=== PATIENT | male | born 1975 | race Caucasian/White ===

== ENCOUNTER 2016-10-12 19:04 | Emergency (ER) | payer BC ==
[2016-10-12 19:11] VITALS: TEMP 98.1
[2016-10-12] MEDS ORDERED: MAG HYDROX/AL HYDROX/SIMETH 30 ML, HYOSCYAMINE ELIXIR 10 ML, CIMETIDINE HCL 300 MG, LID... PO STA ×4 (19:38)
--- NOTE | 2016-10-12 19:42 | ED ---
Chest Pain HPI - General Chief Complaint: Chest Pain Stated Complaint: Chest Pain Time Seen by Provider: 10/12/16 19:24 Source: patient Mode of arrival: wheelchair Limitations: no limitations - History of Present Illness Initial Comments: Patient is a 41-year-old male with past history of tobacco abuse and family history heart disease presenting with left-sided chest pain. Onset was at 2 PM. Pain does not radiate. Patient states he was eating [employer] when the pain came on. Patient hasn't tried anything for the pain. Patient does not relate to rest or exertion. Patient denies diabetes, hypertension, hyperlipidemia. Patient denies cocaine use. Patient denies history of DVT/PE. Denies recent travel/trauma/surgery. Denies hemoptysis. Denies cancer. Denies fever, chills, shortness breath, nausea, vomiting, diarrhea, diaphoresis. - Related Data Home Medications Medication Instructions Recorded Confirmed No Known Home Medications [No 10/12/16 10/12/16 Known Home Medications] Allergies Allergy/AdvReac Type Severity Reaction Status Date / Time omeprazole [From Prilosec] Allergy Itching Verified 10/12/16 20:16 Penicillins Allergy Anaphylaxis Verified 10/12/16 20:16 Review of Systems ROS Statement: Those systems with pertinent positive or pertinent negative responses have been documented in the HPI. Constitutional: No fever and no chills. HENT: No congestion, no rhinorrhea and no sore throat. Eyes: No discharge and no redness. Respiratory: No cough and no shortness of breath. Cardiovascular: +chest pain and no palpitations. Gastrointestinal: No nausea, no vomiting, no abdominal pain and no diarrhea. Genitourinary: No dysuria and no hematuria. Musculoskeletal: No back pain and no arthralgias. Skin: No pallor and no rash. Neurological: No dizziness and No headaches. ROS Other: All systems not noted in ROS Statement are negative. EKG Findings - EKG Comments: EKG Findings:: Rate 74. NSR. No ST-T wave changes. WI internal normal . QRS interval normal. QTc duration normal. Past Medical History Past Medical History: No Reported History History of Any Multi-Drug Resistant Organisms: None Reported Past Surgical History: No Surgical Hx Reported Past Psychological History: No Psychological Hx Reported Smoking Status: Current every day smoker Past Alcohol Use History: None Reported Past Drug Use History: None Reported General Exam - General Exam Comments Initial Comments: Constitutional: Patient appears well-developed and well-nourished. No distress. Head: Normocephalic and atraumatic. Eyes: Conjunctivae and EOM are normal. Right eye exhibits no discharge. Left eye exhibits no discharge. No scleral icterus. Neck: Normal range of motion. Neck supple. Cardiovascular: Normal rate and regular rhythm. No murmur heard. Pulmonary/Chest: Effort normal and breath sounds normal. No respiratory distress. No wheezes. Abdominal: Soft. No distension. There is no tenderness. There is no rebound and no guarding. Musculoskeletal: Normal range of motion. No edema or tenderness. Neurological: Patient alert and oriented to person, place, and time. Skin: Skin is warm and dry. Not diaphoretic. Nursing notes and vitals reviewed. Limitations: no limitations Course Vital Signs 10/12/16 10/12/16 10/12/16 19:08 19:30 22:40 Temperature 98.1 F Pulse Rate 83 84 Pulse Rate [ 76 [employer] ] Respiratory 20 20 Rate Blood Pressure 140/75 130/68 O2 Sat by Pulse 98 98 Oximetry - Reevaluation(s) Reevaluation #1: 10/12/16 21:13 Patient given GI cocktail without significant resolution in pain. D-dimer, Robaxin, Toradol ordered. Updated patient on laboratory, EKG and x-ray results. Chest Pain [facility] Patient is a 41-year-old male presenting with left-sided chest pain after eating [employer]. No radiation. No diaphoresis. Patient has a heart score of 1. Pain did not change her GI cocktail. Pain did change with Toradol and Robaxin. Patient's EKG unremarkable as well as chest x-ray and troponins 2. CBC and CMP unremarkable. Lipase unremarkable. d--dimer negative as pain was mildly pleuritic. Educated patient that he can use Motrin 600 mg every 6 hours. Prior to discharge, patient was resting comfortably in bed. Course of stay improved. Denies pain. Discussed physical exam and diagnostic tests with patient. Questions answered and patient is agreeable to discharge with close follow up with Primary Care Physician. Instructed to return to Emergency Department if symptoms worsen. Disposition Clinical Impression: Chest pain Disposition: HOME SELF-CARE Condition: Good Instructions: Chest Pain (ED) Referrals: Mary Gallo MD [REFERRING] - 1-2 days Pasha Valles DO [Doctor of Osteopathic Medicine] - 1-2 days
[2016-10-12 20:16] LABS: Basophils % (A) 0 %; CH 30.4; CHCM 34.9; Eosinophils # (A) 0.2 k/uL (0-0.7); Eosinophils % (A) 3 %; HCT 46.9 % (39.0-53.0); HDW 2.83; HGB 15.8 gm/dL (13.0-17.5); Luc % (Auto) 1; Lymphocytes # (A) 2.1 k/uL (1.0-4.8); Lymphocytes % (A) 27 %; MCH 29.6 pg (25.0-35.0); MCHC 33.8 g/dL (31.0-37.0); MCV 87.6 fL (80.0-100.0); Mean Platelet Volume 6.7; Monocytes # (A) 0.4 k/uL (0-1.0); Monocytes % (A) 5 %; Neutrophils % (A) 64 %; RBC 5.35 m/uL (4.30-5.90); RDW 13.7 % (11.5-15.5); WBC 7.9 k/uL (3.8-10.6); WBC (Perox) 8.11
[2016-10-12 20:24] LABS: ALT 31 U/L (21-72); AST 21 U/L (17-59); Alkaline Phosphatase 65 U/L (38-126); Anion Gap 12 mmol/L; Blood Urea Nitrogen 15 mg/dL (9-20); Calcium 9.4 mg/dL (8.4-10.2); Carbon Dioxide 27 mmol/L (22-30); Chloride 103 mmol/L (98-107); Glucose 89 mg/dL (74-99); Magnesium 2.1 mg/dL (1.6-2.3); Non-African American GFR(MDRD) >60 (>60 ml/min/1.73 sqM); Potassium 4.4 mmol/L (3.5-5.1); Sodium 142 mmol/L (137-145); Total Bilirubin 0.8 mg/dL (0.2-1.3)
[2016-10-12 20:25] LABS: Partial Thromboplastin Time 27.4 sec (22.0-30.0); Prothrombin Time 10.1 sec (9.0-12.0)
[2016-10-12] MEDS ORDERED: KETOROLAC 30 MG/ML 1 ML VIAL IVP STA (21:12)
[2016-10-12] MEDS ORDERED: METHOCARBAMOL 500 MG TAB PO STA (21:12)
--- NOTE | 2016-10-12 21:35 | XR ---
EXAMINATION TYPE: XR chest 2V DATE OF EXAM: 10/12/2016 8:21 PM COMPARISON: NONE HISTORY: Pain TECHNIQUE: Frontal and lateral views of the chest are obtained. FINDINGS: There is no focal air space opacity, pleural effusion, or pneumothorax seen. The cardiac silhouette size is within normal limits. The osseous structures are intact. IMPRESSION: No acute cardiopulmonary process.
[2016-10-13 00:18] VITALS: BP 130/80; PULSE 70; RESP 14
== END 2016-10-13 00:16 | disposition home or self-care (01) ==
LOC: EC 19:04
DX: R07.9 Chest pain, unspecified (principal); Z82.49 Family history of ischemic heart disease and other diseases of the circulatory system; Z88.0 Allergy status to penicillin; Z88.8 Allergy status to other drugs, medicaments and biological substances; F17.200 Nicotine dependence, unspecified, uncomplicated
CPT/HCPCS: 96374; 99285; 36415; 93005; 85379; 83880; 80048; 82247; 83690; 83735; 84075; 84450; 84460; 84484; 85025; 85610; 85730; 71020; J1885